=== PATIENT | male | born 1960 | race American Indian/Alaskan Native ===

== ENCOUNTER 2021-04-10 00:09 | Emergency (ER) | payer BC ==
--- NOTE | 2021-04-10 00:19 | Event Note ---
ED Screening Note Date of service: 04/10/21 Time: 00:17 ED Screening Note: Is a 61-year-old male with history of hypertension and of palpitations who presents for palpitations for 2 days. Symptoms usually controlled with p.o. metoprolol, patient denies fevers, chills, there is no nausea no vomiting. Abdomen no fall injury or trauma. States adherence to medication regimen. pt is a a 40 + year smoker This initial assessment/diagnostic orders/clinical plan/treatment(s) is/are subject to change based on patients health status, clinical progression and re- assessment by fellow clinical providers in the ED. Further treatment and workup at subsequent clinical providers discretion. Patient/guardian urged not to elope from the ED as their condition may be serious if not clinically assessed and managed. Initial orders include: EKG, CXR, Trop, CMP, CBC
--- NOTE | 2021-04-10 00:39 | XRay Report ---
CHEST 2 VIEWS INDICATION / CLINICAL INFORMATION: palpitations. per patient chest pain, sob, and palpitations for 3xday COMPARISON: None available. FINDINGS: SUPPORT DEVICES: None. HEART / MEDIASTINUM: No significant abnormality. LUNGS / PLEURA: No significant pulmonary or pleural abnormality. No pneumothorax. ADDITIONAL FINDINGS: No significant additional findings. IMPRESSION: 1. No acute findings. Signer Name: Mónica Edgar MD Signed: 04/10/2021 12:34 AM Workstation Name: [id number]
[2021-04-10 01:37] LABS: Basophils # (Auto) 0.1 K/mm3 (0.0-0.1); Basophils % (Auto) 1.4 % (0.0-1.8); Eosinophils # (Auto) 0.2 K/mm3 (0.0-0.4); Eosinophils % (Auto) 3.8 % (0.0-4.3); Hematocrit 44.6 % (35.5-45.6); Lymphocytes # (Auto) 1.3 K/mm3 (1.2-5.4); Lymphocytes % (Auto) 22.9 % (13.4-35.0); Mean Corpuscular HGB Conc 34 % (32-34); Mean Corpuscular Volume 93 fl (84-94); Monocytes # (Auto) 0.6 K/mm3 (0.0-0.8); Monocytes % (Auto) 9.8 % (0.0-7.3); Platelet Count 221 K/mm3 (140-440)
[2021-04-10 02:05] LABS: Alanine Aminotransferase 27 units/L (7-56); BUN/Creatinine Ratio 17; Blood Urea Nitrogen 15 mg/dL (9-20); Calcium 8.6 mg/dL (8.4-10.2); Hemolysis Index 6
[2021-04-10 02:15] LABS: Free T4 (Free Thyroxine) 1.14 ng/dL (0.76-1.46)
--- NOTE | 2021-04-10 02:36 | Emergency Department Report ---
ED Palpitations HPI - General Chief Complaint: Chest Pain Stated Complaint: CP Time Seen by Provider: 04/10/21 01:43 Source: patient Mode of arrival: Ambulatory Limitations: No Limitations - History of Present Illness Initial Comments: 61-year-old male with a past medical history of palpitations and hypertension presents to the hospital complaining of intermittent chest pain and palpitations for the last 2 to 3 days. Patient states that it feels like his heart is skipping a beat. When this occurs he feels short of breath. He denies persistent dyspnea on exertion, calf pain, leg edema, or history of PE/DVT. He did travel to and from [place] several weeks ago via plane. Patient is currently on metoprolol XR 50 mg every morning and Norvasc. He has been compliant with his medications. He has been on metoprolol for several years. His entry specialists initially recommend 100 mg daily however, his blood pressure will drop too low and therefore dose was decreased back to 50. Patient does complain of intermittent upper sternal sharp chest pain since yesterday that has gradually decreased today. He denies cough or infectious symptoms. Reports a negative stress test 1 year ago. No history of previous cath. Patient does smoke cigarettes. 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 No previous medical record available for review. - Related Data Allergies Allergy/AdvReac Type Severity Reaction Status Date / Time No Known Allergies Allergy Unverified 04/10/21 00:13 ED Review of Systems ROS: Stated complaint: CP Other details as noted in HPI Comment: All other systems reviewed and negative ED Physical Exam - General Limitations: No Limitations - Other Other exam information: General: No acute distress Head: Atraumatic Eyes: normal appearance ENT: Moist mucous membranes Neck: Normal appearance, no midline tenderness Chest: Clear to auscultation bilaterally CV: Regular rate and rhythm Abdomen: Soft, normal bowel sounds, nontender, nondistended, no rebound or guarding Back: Normal inspection Extremity: Normal inspection, full range of motion, no calf tenderness or leg edema Neuro: Alert O x 3, no facial asymmetry, speech clear, no gross motor sensory deficit Psych: Appropriate behavior Skin: No rash ED Course Vital Signs 04/10/21 00:12 Temperature 98.7 F Pulse Rate 104 H Respiratory 18 Rate Blood Pressure 136/91 [Right] O2 Sat by Pulse 100 Oximetry - Reevaluation(s) Reevaluation #1: 04/10/21 04:19 Patient brought back to the ED and placed on the monitor and heart rate has remained in the 70s with normal sinus rhythm. ED Medical Decision Making - Lab Data Result diagrams: 04/10/21 00:58 04/10/21 00:58 Lab Results 04/10/21 04/10/21 04/10/21 Range/Units 00:58 00:58 00:58 WBC 5.7 (4.5-11.0) K/mm3 RBC 4.80 (3.65-5.03) M/mm3 Hgb 15.0 (11.8-15.2) gm/dl Hct 44.6 (35.5-45.6) % MCV 93 (84-94) fl MCH 31 (28-32) pg MCHC 34 (32-34) % RDW 13.0 L (13.2-15.2) % Plt Count 221 (140-440) K/mm3 Lymph % (Auto) 22.9 (13.4-35.0) % [place] % (Auto) 9.8 H (0.0-7.3) % Eos % (Auto) 3.8 (0.0-4.3) % Baso % (Auto) 1.4 (0.0-1.8) % Lymph # (Auto) 1.3 (1.2-5.4) K/mm3 [place] # (Auto) 0.6 (0.0-0.8) K/mm3 Eos # (Auto) 0.2 (0.0-0.4) K/mm3 Baso # (Auto) 0.1 (0.0-0.1) K/mm3 Seg Neutrophils % 62.1 (40.0-70.0) % Seg Neutrophils # 3.5 (1.8-7.7) K/mm3 D-Dimer (0-234) ng/mlDDU Sodium 141 (137-145) mmol/L Potassium 3.5 L (3.6-5.0) mmol/L Chloride 105.5 (98-107) mmol/L Carbon Dioxide 24 (22-30) mmol/L Anion Gap 15 mmol/L BUN 15 (9-20) mg/dL Creatinine 0.9 (0.8-1.3) mg/dL Estimated GFR > 60 ml/min BUN/Creatinine Ratio 17 % Glucose 124 H (75-100) mg/dL Calcium 8.6 (8.4-10.2) mg/dL Magnesium (1.7-2.3) mg/dL Total Bilirubin 0.30 (0.1-1.2) mg/dL AST 27 (5-40) units/L ALT 27 (7-56) units/L Alkaline Phosphatase 51 (35-129) units/L Troponin T < 0.010 (0.00-0.029) ng/mL Total Protein 6.7 (6.3-8.2) g/dL Albumin 4.0 (3.9-5) g/dL Albumin/Globulin Ratio 1.5 % TSH 2.430 (0.270-4.200) mlU/mL Free T4 1.14 (0.76-1.46) ng/dL 04/10/21 04/10/21 04/10/21 Range/Units 00:58 02:39 04:27 WBC (4.5-11.0) K/mm3 RBC (3.65-5.03) M/mm3 Hgb (11.8-15.2) gm/dl Hct (35.5-45.6) % MCV (84-94) fl MCH (28-32) pg MCHC (32-34) % RDW (13.2-15.2) % Plt Count (140-440) K/mm3 Lymph % (Auto) (13.4-35.0) % [place] % (Auto) (0.0-7.3) % Eos % (Auto) (0.0-4.3) % Baso % (Auto) (0.0-1.8) % Lymph # (Auto) (1.2-5.4) K/mm3 [place] # (Auto) (0.0-0.8) K/mm3 Eos # (Auto) (0.0-0.4) K/mm3 Baso # (Auto) (0.0-0.1) K/mm3 Seg Neutrophils % (40.0-70.0) % Seg Neutrophils # (1.8-7.7) K/mm3 D-Dimer 146.57 (0-234) ng/mlDDU Sodium (137-145) mmol/L Potassium (3.6-5.0) mmol/L Chloride (98-107) mmol/L Carbon Dioxide (22-30) mmol/L Anion Gap mmol/L BUN (9-20) mg/dL Creatinine (0.8-1.3) mg/dL Estimated GFR ml/min BUN/Creatinine Ratio % Glucose (75-100) mg/dL Calcium (8.4-10.2) mg/dL Magnesium 2.10 (1.7-2.3) mg/dL Total Bilirubin (0.1-1.2) mg/dL AST (5-40) units/L ALT (7-56) units/L Alkaline Phosphatase (35-129) units/L Troponin T < 0.010 (0.00-0.029) ng/mL Total Protein (6.3-8.2) g/dL Albumin (3.9-5) g/dL Albumin/Globulin Ratio % TSH (0.270-4.200) mlU/mL Free T4 (0.76-1.46) ng/dL - EKG Data -: EKG Interpreted by Mn EKG shows normal: sinus rhythm, ST-T waves (mo stemi) Rate: tachycardia (101) - EKG Data 04/10/21 05:05 BP EKG performed at 4:30 AM without acute changes. Sinus rhythm rate 73 beats without ectopy or ischemia - Medical Decision Making 61-year-old male with a past medical history of palpitations and hypertension presents to the hospital with complaints of intermittent sharp chest pain but no significant complaint appears to be palpitations and feeling like his heart is skipping a beat despite compliance with metoprolol. Initial heart rate was mildly tachycardic as per triage. However, when patient was placed on a monitor for observation he remained in his 60s to 70s significant ectopy. Labs unremar kable including D-dimer with a low pretest probability for PE. Chest x-ray normal. Troponin negative x2 with resolution of atypical cp, ekg without ischemia or acute changes x 2. Mild hypokalemia noted and p.o. potassium ordered patient reports having a unremarkable stress test 1 year ago. Critical Care Time: No Critical care attestation.: If time is entered above; I have spent that time in minutes in the direct care of this critically ill patient, excluding procedure time. ED Disposition Clinical Impression: Palpitations, Atypical chest pain, Hypokalemia Disposition: HOME / SELF CARE / HOMELESS Is pt being admited?: No Does the pt Need Aspirin: No Condition: Stable Instructions: Nonspecific Chest Pain, Adult, Palpitations, [id number], Hypokalemia Additional Instructions: Continue your current medication as prescribed. Follow-up with your entry specialists. Return if symptoms worsen as indicated by your discharge instructions. Referrals: JOHN JOHNSON MD [Primary Care Provider] - 3-5 Days Your, entry specialists [Other] - 3-5 Days Time of Disposition: 05:06
[2021-04-10] MEDS ORDERED: POTASSIUM CHLORIDE ER 20 MEQ TAB PO ONE (02:38)
[2021-04-10 06:12] VITALS: BP 122/84
--- NOTE | 2021-04-12 09:19 | Electrocardiograph Report ---
[facility] Test Date: 2021-04-10 Test Time: 00:15:08 Pat Name: CHEMO MERRITT Department: Room: Gender: M Discharge Rn: JUAN ANTONIO : 1960 Requested By: MERARI PLAZA Order Number: [id number] Reading MD: [place] Measurements Intervals [place] Rate: 101 P: 51 IN: 186 QRS: -37 QRSD: 83 T: 39 QT: 344 QTc: 447 Interpretive Statements Sinus tachycardia Ventricular premature complex Inferior infarct, old Consider anterior infarct No previous ECG available for comparison Electronically Signed On 04-12-2021 9:19:33 EST by [place] Klein
--- NOTE | 2021-04-12 09:20 | Electrocardiograph Report ---
[facility] Test Date: 2021-04-10 Test Time: 04:30:50 Pat Name: CHEMO MERRITT Department: Room: Gender: M Knock Out Hand: BETY : 1960 Requested By: ROBERTA FERRIS Order Number: [id number] Reading MD: [place] Klein Measurements Intervals [place] Rate: 73 P: 33 [place]: 195 QRS: -31 QRSD: 90 T: 28 QT: 380 QTc: 420 Interpretive Statements Sinus rhythm Left axis deviation Low voltage, precordial leads No previous ECG available for comparison Electronically Signed On 04-12-2021 9:20:09 EST by West Klein
== END 2021-04-10 06:05 | disposition home or self-care (01) ==
LOC: ED 00:09
DX: R07.89 Other chest pain (principal); R00.2 Palpitations; E87.6 Hypokalemia
CPT/HCPCS: 36415; 71046; 80053; 83735; 84439; 84443; 84484; 85025; 85379; 93005; 99284